=== PATIENT | male | born 1965 | race Caucasian/White ===

== ENCOUNTER → 2021-02-17 | Day surgery (SDC) | payer BC ==
[~2021-02-17] VITALS: Ht 177.8 cm; Wt 98.9 kg
[~2021-02-17] MED LIST: ASPIRIN81 M1 PO; LIPITOR40 MG PO; NIACIN500 M1 PO; PREVACID30 M2 PO; SENNA LAX8.6 M1 PO; SYNTHROID,LEV125 MCG PO; TOPROL XL50 M1 PO
[2021-02-17 06:45] VITALS: BP 142/97
[2021-02-17 07:56] VITALS: BP 120/78
[2021-02-17 08:13] VITALS: BP 128/73
[2021-02-17 08:26] VITALS: BP 141/81
== END | disposition home or self-care (01) ==
LOC: SDC 02-13 08:00
PROVIDERS: ATTEND Surgery
DX: K59.00 Constipation, unspecified (principal); K63.5 Polyp of colon; K62.89 Other specified diseases of anus and rectum; K57.30 Diverticulosis of large intestine without perforation or abscess without bleeding; K21.9 Gastro-esophageal reflux disease without esophagitis; I25.10 Atherosclerotic heart disease of native coronary artery without angina pectoris; I10 Essential (primary) hypertension; Z95.1 Presence of aortocoronary bypass graft; Z79.82 Long term (current) use of aspirin; Z79.899 Other long term (current) drug therapy; Z20.822 Contact with and (suspected) exposure to COVID-19

== ENCOUNTER → 2021-04-17 | Day surgery (SDC) | payer BC ==
[~2021-04-17] MED LIST changes: +STOOL SOFTENER100 M3 PO
[2021-04-17 11:06] VITALS: BP 138/71
[2021-04-17 11:45] VITALS: BP 102/57
[2021-04-17 12:00] VITALS: BP 116/58
[2021-04-17 12:15] VITALS: BP 124/66
== END | disposition home or self-care (01) ==
LOC: SDC 04-14 10:15
PROVIDERS: ATTEND Surgery
DX: K62.89 Other specified diseases of anus and rectum (principal); K60.2 Anal fissure, unspecified; I10 Essential (primary) hypertension; I25.10 Atherosclerotic heart disease of native coronary artery without angina pectoris; Z95.1 Presence of aortocoronary bypass graft; E78.00 Pure hypercholesterolemia, unspecified; K21.9 Gastro-esophageal reflux disease without esophagitis; Z20.822 Contact with and (suspected) exposure to COVID-19; Z79.82 Long term (current) use of aspirin; Z79.899 Other long term (current) drug therapy

== ENCOUNTER → 2021-08-04 | Outpatient (CLI) | payer BC | END | disposition home or self-care (01) | LOC: COVID19 15:14 | PROVIDERS: ATTEND Internal Medicine | DX: U07.1 COVID-19 (principal) ==

== ENCOUNTER → 2021-09-08 | Outpatient (CLI) | payer BC | END | disposition home or self-care (01) | LOC: COVID19 16:46 | PROVIDERS: ATTEND Internal Medicine | DX: Z11.52 Encounter for screening for COVID-19 (principal); Z20.822 Contact with and (suspected) exposure to COVID-19 ==

== ENCOUNTER 2022-08-13 10:40 | Inpatient (IN) | payer BC ==
[~2022-08-13] VITALS: Ht 175.2 cm; Wt 98.0 kg
[2022-08-13 10:52] VITALS: BP 157/88
[2022-08-13 11:19] LABS: BASO # 0.1 10*3/uL (0.0-0.1); BASO % 0.6 % (0.0-1.0); EOS % 0.2 % (1.0-4.0); HEMATOCRIT 44.1 % (42.0-52.0); LYMPH # 0.9 10*3/uL (1.3-4.4); LYMPH % 8.4 % (27.0-41.0); MEAN CORPUSCULAR HGB 31.4 pg (27.0-31.0); MEAN CORPUSCULAR HGB CONC 34.9 g/dl (33.0-37.0); MEAN PLATELET VOLUME 10.9 fl (9.6-12.3); MONO # 0.9 10*3/uL (0.1-1.0); MONO % 8.3 % (3.0-9.0); NEUT # 8.7 10*3/uL (2.3-7.9); NEUT % 82.2 % (47.0-73.0); PLATELET COUNT AUTOMATED 181 10*3/uL (130-400); RED CELL DISTRI WIDTH 12.6 % (0-14.5); WHITE BLOOD COUNT 10.6 10*3/uL (4.8-10.8)
[2022-08-13 11:33] LABS: ACT PARTIAL THROMBO TIME 28.1 SECONDS (20.0-32.1); INTERNATIONAL NORM RATIO 1.1 (2.0-3.5)
[2022-08-13 11:51] LABS: ALKALINE PHOSPHATASE 71 U/L (46-116); BUN 8 mg/dl (9-23); CHLORIDE 103 mmol/L (98-107); CREATININE 0.77 mg/dL (0.70-1.30); LIPASE 32 U/L (12-53); POTASSIUM 3.8 mmol/L (3.4-5.1); SGPT/ALT 25 U/L (10-49); SODIUM 137 mmol/L (136-145); TOTAL PROTEIN 7.1 gm/dL (6.0-8.0)
[2022-08-13 14:30] VITALS: BP 148/78
[2022-08-13 16:55] LABS: BILIRUBIN Negative (Negative); BLOOD Negative (Negative); CLARITY Clear (Clear); COLOR Yellow (Yellow); GLUCOSE Negative (Negative); KETONE 1+ (Negative); LEUKO ESTERASE Negative (Negative); NITRITE Negative (Negative); PH 5.5 (4.5-8.0); SPECIFIC GRAVITY 1.015 (1.001-1.030); UROBILINOGEN 0.2 E.U./dl (0.0-1.0)
[2022-08-13 17:00] VITALS: BP 148/68
[2022-08-13 17:24] LABS: RBC 0-2 rbc/hpf (0-2); WBC 0-2 wbc/hpf (0-5)
[2022-08-13] MEDS ORDERED: FAMOTIDINE20 M1 PO (19:00)
[2022-08-13] MEDS ORDERED: CENTRUM MEN'S1 EACH PO (19:02)
[2022-08-13 20:10] VITALS: BP 127/64
[2022-08-14] VITALS (10 sets, daily range): BP systolic 109–136; BP diastolic 55–70
[2022-08-15] VITALS: BP 119/58
[2022-08-15 08:00] VITALS: BP 136/63
[2022-08-15] MEDS ORDERED: IBU800 M2 PO (10:25)
[2022-08-15 12:00] VITALS: BP 126/70
[2022-08-15] MEDS ORDERED: Motrin,Rufen800 MG PO (13:37)
== END 2022-08-15 14:26 | disposition home or self-care (01) | DRG 418 ==
LOC: ED 10:40 → EDHOLD 14:16 → 5E 14:16
PROVIDERS: Emergency Medicine; ADMIT Internal Medicine; ATTEND Internal Medicine
PROC: 0FT44ZZ Resection of Gallbladder, Percutaneous Endoscopic Approach (ICD-10-PCS; principal; 2022-08-14)
PROC: 3E0T3BZ Introduction of Anesthetic Agent into Peripheral Nerves and Plexi, Percutaneous Approach (ICD-10-PCS; 2022-08-14)
PROC: 3E0T33Z Introduction of Anti-inflammatory into Peripheral Nerves and Plexi, Percutaneous Approach (ICD-10-PCS; 2022-08-14)
DX: K81.0 Acute cholecystitis (principal); N17.9 Acute kidney failure, unspecified; I10 Essential (primary) hypertension; K21.9 Gastro-esophageal reflux disease without esophagitis; E03.9 Hypothyroidism, unspecified; Z95.1 Presence of aortocoronary bypass graft

== ENCOUNTER → 2025-03-19 | Outpatient (CLI) | payer OTHER ==
[~2025-03-19] MED LIST changes: +CENTRUM MEN'S1 EACH PO; +FAMOTIDINE20 M1 PO; +IBU800 M2 PO; +Motrin,Rufen800 MG PO
== END | disposition home or self-care (01) ==
LOC: RAD 15:22
PROVIDERS: ATTEND Internal Medicine
DX: M25.572 Pain in left ankle and joints of left foot (principal)